=== PATIENT | male | born 1965 | race Caucasian/White ===

== ENCOUNTER 2017-12-26 10:26 | Day surgery (SDC) | payer BC ==
[2017-12-26] MEDS ORDERED: PROPOFOL 200 MG/20 ML VIAL As Ordered ×2 (11:12→11:32)
[2017-12-26] MEDS: NS 1,000 ML IV (11:14)
== END 2017-12-26 12:17 | disposition home or self-care (01) ==
LOC: M OPP 10:26
DX: Z12.11 Encounter for screening for malignant neoplasm of colon (principal); D12.0 Benign neoplasm of cecum; I10 Essential (primary) hypertension; E78.5 Hyperlipidemia, unspecified; E11.9 Type 2 diabetes mellitus without complications; M19.90 Unspecified osteoarthritis, unspecified site; M54.5 Low back pain; G62.9 Polyneuropathy, unspecified; R06.83 Snoring; E78.1 Pure hyperglyceridemia; Z88.1 Allergy status to other antibiotic agents; Z79.84 Long term (current) use of oral hypoglycemic drugs; Z79.899 Other long term (current) drug therapy
CPT/HCPCS: 45385

== ENCOUNTER 2021-11-25 13:33 | Emergency (ER) | payer BC, OTHER ==
[~2021-11-25] VITALS: Ht 185.4 cm; Wt 93.2 kg
[~2021-11-25 13:33] MED LIST: BYDU2INJ7 SC; LISI10TA22 PO; MAGN250T7 PO; METF10004 PO; OMEG10002 PO; ROSU5TAB5
[2021-11-25] MEDS ORDERED: LIDOCAINE 2% MDV 20ML VIAL SC ONE (14:35)
[2021-11-25] MEDS ORDERED: BOOSTRIX/ADACEL VACCINE (DIPHTH/PERTUSS/ACELL/TETANUS) 0.5ML SYR IM ONE (14:40)
[2021-11-25] MEDS ORDERED: cefTRIAXone SOD 1GM VIAL (J0696 PER 250MG) IM ONE (14:40)
[2021-11-25] MEDS ORDERED: LIDOCAINE 1% SDV 5ML VIAL DILUENT ONE (14:40)
[2021-11-25 16:16] VITALS: BP 130/70
[2021-11-25] MEDS ORDERED: DERMABOND TOPICAL SKIN ADHESIVE TOP ONE (17:00)
[2021-11-25] MEDS ORDERED: NEOSPORIN OINT 0.9 GM PKT TOP ONE (17:05)
[2021-11-25] MEDS ORDERED: PERC5TAB12 PO (17:18)
[2021-11-25] MEDS ORDERED: CEPH500T PO (17:20)
[2021-11-25] MEDS ORDERED: OXYCODONE/APAP 5MG/325MG(HOME DOSE PACK) PO ONE (17:30)
== END 2021-11-25 18:40 | disposition home or self-care (01) ==
LOC: M ED 13:33
DX: S62.630B Displaced fracture of distal phalanx of right index finger, initial encounter for open fracture (principal); W23.0XXA Caught, crushed, jammed, or pinched between moving objects, initial encounter; Y99.0 Civilian activity done for income or pay; E11.9 Type 2 diabetes mellitus without complications; I10 Essential (primary) hypertension; E78.5 Hyperlipidemia, unspecified; Z88.1 Allergy status to other antibiotic agents; Z79.899 Other long term (current) drug therapy
CPT/HCPCS: 11760; 64450; 73130; 90471; 90715; 96372; 99283; J0696

== ENCOUNTER → 2022-01-07 | Outpatient (CLI) | payer OTHER ==
[~2022-01-07] MED LIST changes: +CEPH500T PO; +PERC5TAB12 PO
== END ==
LOC: M SOG 08:53
PROVIDERS: ATTEND Orthopaedic Surgery Hand Surgery
DX: S62.630D Displaced fracture of distal phalanx of right index finger, subsequent encounter for fracture with routine healing (principal); W18.30XD Fall on same level, unspecified, subsequent encounter

== ENCOUNTER 2024-09-22 13:25 | Outpatient (RCR) | payer BC ==
[~2024-09-22 13:25] MED LIST changes: -BYDU2INJ7 SC; +EXEN2AUT SC; +ROSU5TAB49; -ROSU5TAB5
== END 2024-09-30 ==
LOC: M PT 13:25
PROVIDERS: ATTEND Physician Assistant
DX: M25.519 Pain in unspecified shoulder (principal)